=== PATIENT | female | born 1960 | race Caucasian/White ===

== ENCOUNTER 2021-03-01 08:41 | Day surgery (SDC) | payer OTHER, SELFPAY ==
[2021-02-22 19:53] VITALS: BMI 23.9
--- NOTE | 2021-02-28 08:56 | HO.ANESPROP2 ---
HPI - Anesthesia Eval Consult details Narrative: 60yo F for Upper Endoscopy and Colonoscopy [facility] Past Medical History Medical History (Updated 02/22/21 @ 20:16 by Linda Bender, RN) Anxiety Arm fracture, left Depression Hepatitis C History of breast cancer Hypothyroid Opiate addiction Surgical History Surgical History (Updated 02/22/21 @ 20:16 by Linda Bender RN) H/O lumpectomy History of colonoscopy History of endoscopy Social History Social History Smoking Status: Current every day smoker Cigarettes Per Day: 7 Years Smoked: 50 Smoked in Last 30 Days: Yes Patient Interested in Nicotine Replacement: No Patient Given Instructions on How to Stop Smoking: No Use of substances other than those prescribed or required for medical reasons: No Substance Use Frequency: Weekly Have you been hit, kicked, punched, or otherwise hurt by someone within the past year? If so, by whom?: No Advance Directives: No Advance Directives Information Provided: No Advance Directives on File: No Meds Allergies Allergy/AdvReac Type Severity Reaction Status Date / Time No Known Allergies Allergy Verified 02/22/21 19:53 Home Medications Medication Instructions Recorded Confirmed Last Taken Type buprenorphine-naloxone [Suboxone] 1 strip SUBLINGUAL BID 02/22/21 02/22/21 Unknown History docusate sodium [Colace] 100 mg PO BID PRN 02/22/21 02/22/21 Unknown History levothyroxine 1 tab PO 6XW 02/22/21 02/22/21 Unknown History multivitamin 1 tab PO DAILY 02/22/21 02/22/21 Unknown History omeprazole 1 cap PO DAILY 02/22/21 02/22/21 Unknown History venlafaxine 1 tab PO DAILY 02/22/21 02/22/21 Unknown History Exam Exam Date and Time: February 28, 2021 0856 Height,Weight and Vital Signs: Height 5 ft 5 in Weight 65.317 kg Assessment and Plan Assessment Anesthesia Assessment: Chart Reviewed
[2021-03-01 08:52] VITALS: BP 133/74; PULSE 75; RESP 18; TEMP 35.5; O2SAT 100
[2021-03-01] MEDS: Lactated Ringers 1,000 ML 100 ML IVCONT (09:13)
--- NOTE | 2021-03-01 09:55 | P.HPSUR_ITS ---
Pre-Procedural Eval Section B Chief Complaint: screening,reflux Details of Present Illness: see h and p no changes Relevant Social History: Alcohol Use (see stoll nd p) Present Medications: see Short Stay Collaborative assessment Medical History: No relevant PMH History of Previous Operations: No relevant previous surgery Allergies: Allergies Allergy/AdvReac Type Severity Reaction Status Date / Time No Known Allergies Allergy Verified 02/22/21 19:53 Review of Systems Sugical H&P ROS: Negative: Constitution, Cardiovascular, Respiratory, Neurological, Psychiatric, Hem-Onc, Allergic/Immunologic, Gastrointestinal, Genitourinary, Musculoskeletal, Integumentary, Endocrine and Eyes/Ea rs/Nose/Throat Exam Surgical H&P Exam: Normal: HEENT, Normal: Heart, Normal: Lungs, Normal: Extremities, Normal: Abdomen, Normal: Skin and Normal: Neurological Plan Diagnosis/Plan: Unchanged I have reviewed the history and physical and performed a pertinent physical examination on my patient. No changes have occurred unless specified.
--- NOTE | 2021-03-01 09:55 | PM.OP ---
Brief Operative Note Date of Service: 03/01/21 Pre-op diagnosis: screening, gerd Post-op diagnosis: same Procedure: egd,colon Surgeon: Pietro Webber Anesthesia: MAC Estimated blood loss (mL): 5 Pathology: other (see notes) Condition: stable Disposition: PACU
[2021-03-01 10:46] VITALS: BP 182/102; PULSE 77; RESP 16; TEMP 36.2; O2SAT 98
--- NOTE | 2021-03-01 10:50 | PM.OP ---
Brief Operative Note Date of Service: 03/01/21 Pre-op diagnosis: gerd screening Post-op diagnosis: same Surgeon: Pietro Webber Estimated blood loss (mL): 5 Pathology: other (bxs antrum, polyps egj) Condition: stable Disposition: PACU
[2021-03-01] MEDS: ondansetron HCL 4 MG/2 ML VIAL IVPUSH (10:57)
[2021-03-01 11:01] VITALS: BP 172/90; PULSE 86; RESP 20; O2SAT 97
[2021-03-01] MEDS: Metoclopramide HCl 10 MG/2 ML VIAL IVPUSH (11:10)
[2021-03-01 11:16] VITALS: BP 167/72; PULSE 77; RESP 20; O2SAT 97
[2021-03-01 11:30] VITALS: BP 154/92; PULSE 72; RESP 16; O2SAT 95
--- NOTE | 2021-03-01 11:36 | OP_ITS ---
SURGEON: Pietro Webber MD INDICATIONS: Gastroesophageal reflux disease and colon cancer screening. PREOPERATIVE DIAGNOSIS: POSTOPERATIVE DIAGNOSIS: PROCEDURE PERFORMED: ESTIMATED BLOOD LOSS: COMPLICATIONS: ANESTHESIA: ASSISTANTS: SPECIMENS: PROCEDURES PERFORMED: 1. Upper endoscopy with biopsy. 2. Colonoscopy to the terminal ileum with biopsy and snare polypectomy. MEDICATIONS: Monitored anesthesia care. DESCRIPTION OF PROCEDURE: History and physical performed. The risks and benefits of the procedure were explained to the patient. Informed consent was obtained. The patient was placed in left lateral decubitus position. The Olympus video gastroscope was introduced into the esophagus, stomach, and duodenum. Examination was performed and the scope was removed. She was repositioned for colonoscopy. Digital rectal exam was performed and was found to be normal. The Olympus pediatric video colonoscope was introduced into the rectum and advanced to the cecum without difficulty. The cecum was identified by transillumination, palpation, and identification of ileocecal valve. Examination was performed and the scope was removed. She tolerated both procedures well and was taken to recovery area in stable condition. FINDINGS: UPPER ENDOSCOPY: Esophagus: The esophagus was normal. There was no esophagitis. There was a moderate-sized hiatal hernia. Stomach: The stomach showed no evidence of masses or ulcers. There were several benign-appearing gastric polyps in the body and fundus. Two of these were biopsied. These all measured less than 10 mm. Antral biopsies were obtained to rule out H pylori. Duodenum: The bulb and second portion were normal. COLONOSCOPY: The terminal ileum was examined and appeared normal. The visualized colonic mucosa was within normal limits without evidence of masses or ulcers. At 80 cm from the anal verge, was a less than 5 mm polyp, which was removed with biopsy forceps. At 50 cm, was an 8 mm polyp, which was removed with a snare and recovered via suction. No other polyps were identified. There was moderate amount of liquid and some semi-formed stool, limiting the examination for detection of small polyps. This was washed and suctioned as best possible. Retroflexed examination showed small internal hemorrhoids. Random sigmoid biopsies were obtained to rule out microscopic colitis. IMPRESSION: 1. Gastroesophageal reflux disease. 2. Colon polyps. RECOMMENDATION: Follow up the biopsy results. MD FALLON Dunlap/BROOKL / [id number]
[2021-03-01 11:45] VITALS: BP 148/73; PULSE 77; RESP 16; O2SAT 96
--- NOTE | 2021-03-05 14:59 | PM.EVENT ---
Event Note Date of Service: 03/01/21 Event Note: Addendum to operative report. Biopsies were obtained from the EG junction to assess for Pisano's esophagus.
== END 2021-03-01 12:52 | disposition home or self-care (01) ==
PROVIDERS: PCP Internal Medicine; Visit Provider Internal Medicine Gastroenterology
PROC: (CPT 45385; principal; 2021-03-01 09:30)
DX: Z12.11 Encounter for screening for malignant neoplasm of colon (principal); D12.4 Benign neoplasm of descending colon; D12.5 Benign neoplasm of sigmoid colon; K21.9 Gastro-esophageal reflux disease without esophagitis; K31.7 Polyp of stomach and duodenum; K44.9 Diaphragmatic hernia without obstruction or gangrene; Z85.3 Personal history of malignant neoplasm of breast; Z92.21 Personal history of antineoplastic chemotherapy; Z92.3 Personal history of irradiation; Z86.19 Personal history of other infectious and parasitic diseases; F17.210 Nicotine dependence, cigarettes, uncomplicated; F11.20 Opioid dependence, uncomplicated
CPT/HCPCS: 45385; 45380; 43239; 88305; 88342; J2405; J2765